=== PATIENT | male | born 1960 | race Caucasian/White ===

== ENCOUNTER 2024-08-19 07:07 | Day surgery (SDC) | payer BC ==
[~2024-08-19 07:07] MED LIST: Sodium Chloride 0.9% 10 ML Syringe FLUSH PRN
[2024-08-19] MEDS ORDERED: Propofol 200 MG/20 ML SDV IV ONE (07:08)
[2024-08-19] MEDS ORDERED: Lidocaine 2% 100 MG/5 ML Syringe IVPUSH ONE (07:08)
[2024-08-19] MEDS: Lactated Ringers 1,000 ML IV SCH (07:45)
== END 2024-08-19 09:07 | disposition home or self-care (01) ==
LOC: FB.SDS 07:07
PROVIDERS: ATTEND Surgery
DX: K57.31 Diverticulosis of large intestine without perforation or abscess with bleeding (principal); K21.9 Gastro-esophageal reflux disease without esophagitis; F17.210 Nicotine dependence, cigarettes, uncomplicated
CPT/HCPCS: 00811; J2704; J7120